=== PATIENT | male | born 1980 | race Caucasian/White ===

== ENCOUNTER → 2020-12-08 | Outpatient (CLI) | payer OTHER ==
--- NOTE | 2020-12-08 11:26 | RAD ---
EXAMINATION: CT ABDOMEN+PELVIS WO (CT ABDOMEN/PELVIS WITHOUT IV CONTRAST) CLINICAL HISTORY: RIGHT FLANK PAIN, HEMATURIA TECHNIQUE: Non-IV contrast imaging of the abdomen and pelvis was performed using standard technique, scanning from just above the dome of the diaphragm to the symphysis pubis. Unenhanced imaging is hahn ited for the evaluation of some intra-abdominal and pelvic pathology. CT Dose Reduction Employed: One or more of the following individualized dose reduction techniques wer e utilized for this examination: 1. Automated exposure control 2. Adjustment of the mA and/or kV ac cording to patient size 3. Use of iterative reconstruction technique. COMPARISON: None FINDINGS: Partially visualized heart and lung bases unremarkable. Subcentimeter hypodensity in the right hepatic lobe, too small to adequately characterize but likely benign. Minimally distended gallbladder with single calcified gallstone. Pancreas, spleen, and adrena l glands unremarkable. 5 mm calculus at the right ureteropelvic junction with mild pelviectasis. Multiple nonobstructive pun ctate calculi in the right greater than left kidneys. 1 cm cortical hypodensity in the midpole the le ft kidney, incompletely evaluated but likely a benign cyst. Mildly filled urinary bladder suboptimally evaluated. Multiple coarse calcifications in the prostate. No dilated bowel. Sigmoid diverticulosis without evidence of diverticulitis on limited noncontrast ev aluation. Appendix not definitively visualized. No evidence of abdominal aortic or iliac artery aneurysm. No lymphadenopathy. Multilevel degenerative changes of the thoracic spine. IMPRESSION: 5 mm calculus at the right ureteropelvic junction with mild pelviectasis. Additional nonobstructive p unctate nephrolithiasis bilaterally. Nonvisualized appendix. Additional nonacute findings as described. Electronically signed by: Ray Vergara DO (12/08/2020 11:24 AM) [id number]
== END ==
LOC: CT 10:49
PROVIDERS: ATTEND Family Medicine Sports Medicine
DX: N20.0 Calculus of kidney (principal); N13.30 Unspecified hydronephrosis; M47.814 Spondylosis without myelopathy or radiculopathy, thoracic region
CPT/HCPCS: 74176